=== PATIENT | female | born 1980 | race Caucasian/White ===

== ENCOUNTER 2018-09-16 17:13 | Emergency (ER) | payer MEDICAID ==
[~2018-09-16] VITALS: Ht 167.6 cm; Wt 75.4 kg
[2018-09-16 17:21] VITALS: Ht 167.6 cm; Wt 75.4 kg
[2018-09-16 18:55] VITALS: BP 145/78
== END 2018-09-16 18:55 | disposition home or self-care (01) ==
LOC: ED 17:13
DX: S20.211A Contusion of right front wall of thorax, initial encounter (principal); Z88.6 Allergy status to analgesic agent; Z98.84 Bariatric surgery status; W22.8XXA Striking against or struck by other objects, initial encounter; Y93.89 Activity, other specified; Y92.89 Other specified places as the place of occurrence of the external cause; Y99.8 Other external cause status